=== PATIENT | male | born 1975 | race Two or more races ===

== ENCOUNTER 2020-10-02 14:34 | Outpatient (REF) | payer BC, SELFPAY | END 2020-10-02 14:35 | disposition home or self-care (01) | LOC: HO.LAB 14:34 | PROVIDERS: PCP Internal Medicine; Visit Provider Internal Medicine | DX: Z20.822 Contact with and (suspected) exposure to COVID-19 (principal) | CPT/HCPCS: 36415; C9803; U0003 ==

== ENCOUNTER 2020-12-14 09:05 | Outpatient (REF) | payer BC, SELFPAY ==
[2020-12-14 09:37] LABS: MANUAL DIFF FLAG NO
[2020-12-14 09:56] LABS: Basophils Absolute Auto 0.1 X10*3/uL (0.0-0.2); Basophils Percent Auto 1.6 % (0-2); Eosinophils Absolute Auto 0.2 X10*3/uL (0.0-0.4); Eosinophils Percent Auto 5.2 % (0-4); Hematocrit 42.5 % (42-52); Imm Gran Abs Auto 0.01 X10*3/uL (0.00-0.03); Imm Gran Pct Auto 0.3 % (0.0-0.4); Lymphocytes Absolute Auto 1.4 X10*3/uL (1.2-4.9); Lymphocytes Percent Auto 35.4 % (20-40); Mean Corpuscular HGB Conc 32.9 g/dl (31.0-36.0); Mean Corpuscular Hemoglobin 29.2 pg (27.0-33.0); Mean Corpuscular Volume 88.5 fL (80-98); Monocytes Absolute Auto 0.3 X10*3/uL (0.1-1.2); Monocytes Percent Auto 7.8 % (2-11); Neutrophils Absolute Auto 1.9 X10*3/uL (2.0-8.3); Neutrophils Percent Auto 49.7 % (45-73); Platelet Count 220 X10*3/uL (160-400); Red Cell Distribution Width 12.2 % (11.0-16.0); White Blood Count 3.8 X10*3/uL (4.8-10.8)
[2020-12-14 10:21] LABS: Alanine Aminotransferase 26 U/L (0-40); Albumin Level 4.4 g/dL (3.5-5.0); Alkaline Phosphatase 47 U/L (39-117); Anion Gap 10 (12-20); Aspartate Amino Transferase 23 U/L (5-37); Bilirubin Total 0.7 mg/dL (0.0-1.0); Blood Urea Nitrogen 20 mg/dL (9-16); Calcium 9.4 mg/dL (8.4-10.2); Carbon Dioxide 30 mmol/L (22-29); Chloride 104 mmol/L (96-108); Cholesterol 168 mg/dL; Estimated Glomerular Filt Rate > 60; Glucose Fasting 93 mg/dL (60-99); HDL Cholesterol 65 mg/dL; LDL Cholesterol Calculated 94 mg/dl; Potassium 4.1 mmol/L (3.3-5.1); Sodium 140 mmol/L (135-145); Total Protein 7.3 g/dL (6.5-8.0); Triglycerides 48 mg/dL
[2020-12-14 10:42] LABS: Thyroid Stimulating Hormone 0.81 uIU/mL (0.32-4.0)
== END 2020-12-14 09:06 | disposition home or self-care (01) ==
LOC: HO.LAB 09:05
PROVIDERS: PCP Internal Medicine; Visit Provider Internal Medicine
DX: D64.9 Anemia, unspecified (principal); R63.4 Abnormal weight loss; E78.5 Hyperlipidemia, unspecified; Z83.3 Family history of diabetes mellitus
CPT/HCPCS: 36415; 80053; 80061; 84443; 85025

== ENCOUNTER 2021-09-27 11:11 | Outpatient (REF) | payer BC, SELFPAY ==
[2021-09-27 13:21] LABS: Binax Internal Control QC Valid; Binax Lot number: 9864; Binax Now Covid-19 Ag Positive (Negative)
== END 2021-09-27 11:12 | disposition home or self-care (01) ==
LOC: HO.LAB 11:11
PROVIDERS: Visit Provider Internal Medicine
DX: Z20.822 Contact with and (suspected) exposure to COVID-19 (principal)
CPT/HCPCS: C9803

== ENCOUNTER 2022-03-05 09:29 | Outpatient (REF) | payer BC, SELFPAY ==
[2022-03-05 09:53] LABS: MANUAL DIFF FLAG NO
[2022-03-05 09:57] LABS: Basophils Absolute Auto 0.1 X10*3/uL (0.0-0.2); Basophils Percent Auto 1.3 % (0-2); Eosinophils Absolute Auto 0.3 X10*3/uL (0.0-0.4); Eosinophils Percent Auto 7.3 % (0-4); Hematocrit 41.6 % (42.0-52.0); Hemoglobin 13.8 g/dl (14.0-18.0); Imm Gran Abs Auto 0.01 X10*3/uL (0.00-0.03); Imm Gran Pct Auto 0.3 % (0.0-0.4); Lymphocytes Absolute Auto 1.1 X10*3/uL (1.2-4.9); Lymphocytes Percent Auto 28.9 % (20-40); Mean Corpuscular HGB Conc 33.2 g/dl (31.0-36.0); Mean Corpuscular Hemoglobin 29.2 pg (27.0-33.0); Mean Corpuscular Volume 87.9 fL (80.0-98.0); Mean Platelet Volume 10.5 fL (9.4-12.4); Monocytes Absolute Auto 0.3 X10*3/uL (0.1-1.2); Monocytes Percent Auto 8.1 % (2-11); Neutrophils Absolute Auto 2.1 x10*3/uL (2.0-8.3); Neutrophils Percent Auto 54.1 % (45-73); Platelet Count 206 X10*3/uL (160-400); Red Blood Count 4.73 X10*6/uL (4.60-5.80); Red Cell Distribution Width 12.1 % (11.0-16.0)
[2022-03-05 10:25] LABS: Alanine Aminotransferase 16 U/L (0-40); Albumin Level 4.4 g/dL (3.5-5.0); Alkaline Phosphatase 51 U/L (39-117); Anion Gap 9 (12-20); Aspartate Amino Transferase 18 U/L (5-37); Bilirubin Total 0.7 mg/dL (0.0-1.0); Blood Urea Nitrogen 19 mg/dL (9-16); Calcium 9.4 mg/dL (8.4-10.2); Carbon Dioxide 30 mmol/L (22-29); Chloride 105 mmol/L (96-108); Cholesterol 161 mg/dL; Estimated Glomerular Filt Rate > 60; Glucose Fasting 100 mg/dL (60-99); HDL Cholesterol 65 mg/dL; LDL Cholesterol Calculated 87 mg/dl; Potassium 4.6 mmol/L (3.3-5.1); Sodium 139 mmol/L (135-145); Total Protein 6.3 g/dL (6.5-8.0); Triglycerides 47 mg/dL
[2022-03-05 10:46] LABS: Prostate Specific Antigen Scr 0.59 ng/mL (<0.05-4.0)
== END 2022-03-05 09:30 | disposition home or self-care (01) ==
LOC: HO.LAB 09:29
PROVIDERS: PCP Internal Medicine; Visit Provider Nurse Practitioner Family
DX: Z00.00 Encounter for general adult medical examination without abnormal findings (principal); I10 Essential (primary) hypertension; E78.00 Pure hypercholesterolemia, unspecified; Z83.3 Family history of diabetes mellitus; Z12.5 Encounter for screening for malignant neoplasm of prostate
CPT/HCPCS: 36415; 80053; 80061; 84153; 85025

== ENCOUNTER → 2024-05-19 14:32 | Outpatient (RCR) | payer BC, SELFPAY ==
--- NOTE | 2021-03-08 14:56 | P.CNHO_ITS ---
Subjective - Subjective Chief complaint: Weight loss Patient: new to practice Consult date: 03/08/21 Primary Care Provider: Nita Delgado MD Medical Summary: Diagnosis: Leukopenia/weight loss HPI - Consult Narrative Reason for consult: leukopenia Narrative: Juaquin Joya is a 46 year old male referred for evaluation of weight loss and leukopenia. Patient states that in the last few years he has lost over 20 lb. He attributes this to control of his diet and not eating any sugars are carbohydrates. Overall he has no symptoms such as fatigue, fever, chills or loss of appetite. He denies any recent infections or use of new medications. His energy level is good. He has no history of recurrent infections. He denies any abdominal discomfort, heartburn or reflux symptoms, difficulty swallowing or change in bowel habits. He has no symptoms of excessive urination or excessive hunger. Review of Systems - Constitutional Reports as per HPI, Reports no additional constitutional complaints - Cardiovascular Reports no additional cardiovascular complaints - Respiratory Reports no additional respiratory complaints - Gastrointestinal Reports no additional gastrointestinal complaints Oncology Screenings - ECOG Performance Status ECOG Performance Status: 0 [facility] Medical History: Medical History (Last Reviewed 03/08/21 @ 15:02 by Sanjuana Dye RN) Family history of diabetes mellitus Leukopenia Right lower quadrant abdominal pain Shoulder pain Weight loss Family History: Family History (Last Reviewed 01/31/21 @ 12:08 by Nita Delgado MD) Father Heart problem Mother Diabetes Maternal Grandmother No problems noted. Maternal Grandfather No problems noted. Paternal Grandmother No problems noted. Paternal Grandfather No problems noted. Surgical History: Surgical History (Last Reviewed 03/08/21 @ 15:02 by Sanjuana Dye RN) No pertinent past surgical history Social History: Social History (Last Updated 03/08/21 @ 15:03 by Sanjuana Dye RN) Alcohol History: Alcohol intake: never Tobacco History: Patient Tobacco Use Status: Never used Tobacco Patient Tobacco Use Status: Never used Tobacco Substance use type: does not use Home Medications and Allergies Allergies Allergy/AdvReac Type Severity Reaction Status Date / Time No Known Allergies Allergy Verified 01/31/21 12:07 Physical Exam Narrative: Appears well, thin built and rather thin for his height. - Constitutional Present: no acute distress, thin - Routine HEENT Exam Head: Present: normal inspection Eye: Present: EOMI, normal appearance - Routine Neck Exam Present: supple. Absent: lymphadenopathy, thyromegaly, swelling - Routine Chest/Breast/Axilla Exam Axillae: Absent: lymphadenopathy - Routine Respiratory Exam Present: CTAB. Absent: rhonchi - Routine Cardiovascular Exam Cardiovascular: Present: RRR, S2 - Routine Abdominal Exam Present: normal bowel sounds, soft. 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 His leukopenia was discovered incidentally, his WBC count has remained stable since 2014. He has no constitutional symptoms or symptoms of recurrent infections. his weight loss seems related to his eating habits and, he has no gastrointestinal symptoms or constitutional symptoms. He feels quite well and has good energy levels. He has no desire to increase his weight but if he does, he should keep a calorie count and try to increase his oral intake. He is not on any medications that can cause weight loss and he is not a diabetic. I do not think his leukopenia and weight loss are related. He has benign stable leukopenia without any symptoms to suggest underlying hematological disorder. Basic hematological blood work however has been submitted to rule out any vitamin deficiencies. Results will be discussed on follow-up visit. I thank you for this consultation.
[2021-03-08 14:59] VITALS: BP 125/60; PULSE 70; RESP 18; TEMP 36.7; O2SAT 99; BMI 19.3
[2021-03-08 15:59] LABS: MANUAL DIFF FLAG NO
[2021-03-08 16:03] LABS: Basophils Absolute Auto 0.1 X10*3/uL (0.0-0.2); Basophils Percent Auto 1.2 % (0-2); Eosinophils Absolute Auto 0.2 X10*3/uL (0.0-0.4); Eosinophils Percent Auto 5.4 % (0-4); Hemoglobin 13.7 g/dl (14.0-18.0); Imm Gran Abs Auto 0.01 X10*3/uL (0.00-0.03); Imm Gran Pct Auto 0.2 % (0.0-0.4); Immature Retic Fraction 3.6 % (2.3-13.4); Lymphocytes Absolute Auto 1.3 X10*3/uL (1.2-4.9); Lymphocytes Percent Auto 32.2 % (20-40); Mean Corpuscular HGB Conc 32.6 g/dl (31.0-36.0); Mean Corpuscular Hemoglobin 28.8 pg (27.0-33.0); Mean Corpuscular Volume 88.4 fL (80-98); Mean Platelet Volume 11.1 fL (9.4-12.4); Monocytes Absolute Auto 0.3 X10*3/uL (0.1-1.2); Monocytes Percent Auto 7.1 % (2-11); Neutrophils Absolute Auto 2.2 X10*3/uL (2.0-8.3); Neutrophils Percent Auto 53.9 % (45-73); Platelet Count 222 X10*3/uL (160-400); Red Blood Count 4.75 X10*6/uL (4.60-5.80); Retic HGB Equivalent 32.2 pg (30.0-35.0); Reticulocytes Absolute 0.049 X10*6/uL (0.026-0.095); White Blood Count 4.1 X10*3/uL (4.8-10.8)
[2021-03-08 16:29] LABS: Lactate Dehydrogenase 174 U/L (118-273)
[2021-03-08 17:05] LABS: Folate 14.7 ng/mL (> or = 4.0); Vitamin B12 919 pg/mL (200-900)
[2021-03-10 15:52] LABS: Anti Nuclear Antibody Screen NEGATIVE (NEGATIVE)
[2021-03-11 11:51] LABS: Prot Elec - Albumin 4.4 g/dL (3.8-4.8); Prot Elec - Alpha1 0.2 g/dL (0.2-0.3); Prot Elec - Alpha2 0.7 g/dL (0.5-0.9); Prot Elec - Beta 1 0.5 g/dL (0.4-0.6); Prot Elec - Beta 2 0.5 g/dL (0.2-0.5); Prot Elec - Gamma 1.1 g/dL (0.8-1.7); Prot Elec - Total Protein 7.4 g/dL (6.1-8.1)
[2021-03-12 19:28] LABS: IgA 370 mg/dL (47-310); IgG 1217 mg/dL (600-1640); IgM 97 mg/dL (50-300)
== END | disposition home or self-care (01) ==
LOC: HO.ONC 03-08 14:37
PROVIDERS: PCP Internal Medicine; Referring Provider Internal Medicine; Visit Provider Internal Medicine
DX: D72.819 Decreased white blood cell count, unspecified (principal); R63.4 Abnormal weight loss
CPT/HCPCS: 36415; 82607; 82746; 82784; 83615; 84155; 84165; 85025; 85045; 86038; 86039; 86334

== ENCOUNTER 2024-12-02 15:33 | Outpatient (AMB) | payer OTHER, SELFPAY ==
[2024-12-02 15:51] VITALS: BP 100/62; PULSE 83; TEMP 37.3; O2SAT 97; BMI 18.6
--- NOTE | 2024-12-02 15:51 | A.OFFPC_ITS ---
Vital Signs 12/02/24 15:51 Height 5 ft 11 in Weight 133 lb 9.6 oz BMI 18.6 BP 100/62 Blood Pressure Location Lt brachial Position Sitting Pulse 83 Pulse Source Pulse Oximeter Temp 99.1 F Temp Source Oral Pulse Oximetry (%) 97 Oxygen Delivery Method Room Air Intake Visit Reasons: back pain Learning Designer Required: No Accompanied by: Self / Same As Patient Allergies No Known Allergies Allergy (Verified 12/02/24 15:58) Medication List - Last Reconciled 12/02/24 by ASHLEY Roberts No Known Home Meds Tobacco use date assessed: 12/02/24 Dental Screening Dental Screen Date: 12/02/24 Did you have a dental visit in the last 12 months?: No Did you have a dental problem in the last 6 months where you did not have access to dental care?: No HPI back pain HPI Details The patient is a 49-year-old male presenting with complaints of back pain Patient reports that his back has been hurting for a few months now Reports that the pain comes and goes but lately it has been more bothersome Reports that the pain is in his lower back without radiation in lower extremities Reports that he had tried icy hot and Motrin with some relief Patient denies any recent injuries or trauma [facility] Medical History Leukopenia Weight loss Right lower quadrant abdominal pain Family history of diabetes mellitus Shoulder pain Surgical History No pertinent past surgical history Family History Father Heart problem Mother Diabetes Maternal Grandmother No problems noted. Maternal Grandfather No problems noted. Paternal Grandmother No problems noted. Paternal Grandfather No problems noted. Social History Housing: Apartment Alcohol intake: never Patient Tobacco Use Status: Never used Tobacco e-Cigarette/Vaping Use: Never Used Second Hand Smoke Exposure: No service: No Current occupational status: employed Current occupational exposures/hazards: No Cognitive needs: No Hearing needs: No Vision needs: Yes (Glasses) Questionnaire PHQ-9 Over the last 2 weeks, how often have you been bothered by any of the following problems? 1. Little interest or pleasure in doing things: not at all 2. Feeling down, depressed, or hopeless: not at all 3. Trouble falling or staying asleep, or sleeping too much: not at all 4. Feeling tired or having little energy: not at all 5. Poor appetite or overeating: not at all 6. Feeling bad about yourself - or that you are a failure or have let yourself or your family down: not at all 7. Trouble concentrating on things, such as reading the newspaper or watching television: not at all 8. Moving or speaking so slowly that other people could have noticed. Or the opposite - being so fidgety or restless that you have been moving around a lot more than usual: not at all 9. Thoughts that you would be better off or of hurting yourself in some way: not at all Total score: 0 Depression Screening Interpretation: Negative Depression Screening Done: Yes 19856 - PHQ-9 Billing: Yes Source: Developed by Drs. Simon Mejia, Simran Feldman, Rickey Myles and colleagues, with an educational odilia from [employer] Thrive Questionnaire Date Thrive assessed: 12/02/24 I am a: Patient What is your living situation today?: I have a steady place to live Within the past 12 months, did the food you bought not last and you didn't have the money to get more?: Never true Within the past 12 months, did you worry whether your food would run out before you got money to buy more?: Never true Do you have trouble paying for medicines?: No Do you have trouble getting transportation to medical appointments?: No Do you have trouble paying your heating and electricity bill?: No Do you have trouble taking care of your child, family member or friend?: No Do you have trouble with day-to-day activities such as bathing, preparing meals, shopping, managing finances, etc.?: No Are you currently unemployed and looking for a job?: No Are you interested in more education?: No Please select the resources that you would like help with: None Currently or been in a relationship where the following occur: No concerns reported THRIVE Score: 0 AUDIT C Alcohol Use Questionnaire (AUDIT-C) 1. How often do you have a drink containing alcohol?: Never 3. How often do you have six or more drinks on one occasion?: Never Total Score: 0 Score Reviewed/Action Taken: No CADEN-7 AMB Questionnaire CADEN-7 Date CADEN - 7 assessed: 12/02/24 Feeling nervous, anxious, or on edge: 0 = Not at all Not being able to stop or control worryin = Not at all Worrying too much about different things: 0 = Not at all Trouble relaxin = Not at all Being so restless that it is hard to sit still: 0 = Not at all Becoming easily annoyed or irritable: 0 = Not at all Feeling afraid as if something awful might happen: 0 = Not at all Total CADEN-7 score (0-4 normal; 5-9 mild; 10-14 moderate; 15-21 severe): 0 Source: Developed by Drs. Simon Mejia, Simran Feldman, Rickey Myles and colleagues, with an educational odilia from [employer] CADEN-7 Assessment Billing CADEN-7 Assessment Tool: CADEN-7 Assessment 85349 Review of Systems Const Denies headache(s) Eyes Denies loss of vision ENT Denies vertigo, Denies dizziness, Denies headache(s) and Denies sore throat Card Denies chest pain, Denies leg edema and Denies lightheadedness Resp Denies cough, Denies hemoptysis and Denies wheezing GI Denies abdominal pain, Denies melena, Denies constipation, Denies diarrhea and Denies vomiting Denies dysuria, Denies urinary frequency and Denies urinary urgency Musc Reports back pain, Denies arthralgias, Denies joint swelling, Denies numbness and Denies tingling Neuro Denies Abnormal speech present, Denies behavioral changes, Denies vertigo, Denies dizziness, Denies headache(s), Denies loss of vision, Denies memory loss, Denies numbness and Denies tingling Psych Denies anxiety, Denies behavioral changes, Denies depression, Denies memory loss and Denies panic attacks Michele/Lymph Denies easy bleeding and Denies easy bruising Aller/Immun Denies wheezing Physical exam (Primary Care) Vital Signs: Last Vital Signs Temp 99.1 F 12/02/24 15:51 Pulse 83 12/02/24 15:51 BP 100/62 12/02/24 15:51 Pulse Ox 97 12/02/24 15:51 Oxygen Delivery Method Room Air 12/02/24 15:51 BMI result Body Mass Index 18.6 Tobacco/Smoking Status: Tobacco use Status Tobacco use date assessed 12/02/24 12/02/24 15:57 Patient Tobacco Use Status Never used Tobacco 12/02/24 15:57 e-Cigarette/Vaping Use Never Used 12/02/24 15:57 PHQ-9: PHQ-9 Score PHQ-9: Total score 0 12/02/24 16:04 Depression Screening Interpretation: Negative Thrive Assessment: Date of Thrive Assessment Date Thrive assessed 12/02/24 12/02/24 15:57 Currently or been in a relationship where the following occur: No concerns reported Const General: healthy appearing, no acute distress, alert and awake Nutritional Appearance: well nourished Orientation/consciousness: oriented to person, oriented to place and oriented to time HENMT Ears: TM's normal bilaterally General nose exam: Normal nasal mucous membranes and turbinates present Eyes Conjunctivae: conjunctivae normal Sclerae: sclerae normal Pupils: Equal, round and reactive pupils present Neck Neck: Yes no lymphadenopathy and Yes no JVD Thyroid: Thyroid normal Carotids: no bruits Resp Effort & Inspection: normal respiratory effort and not tachypneic Auscultation: no crackles, no rales, no rhonchi and no wheezes Cardio Rate: regular rate Rhythm: regular rhythm Heart sounds: no murmurs and normal S1 and S2 GI Palpation (GI): Soft to palpation, nontender, no hepatomegaly and no splenomegaly Auscultation: normal bowel sounds General: Yes no CVA tenderness Back/Spine/Pelvis Back: no CVA tenderness Thoracic/Lumbar Spine: straight leg raise negative bilaterally, No thoracic spinal tenderness and No lumbar spinal tenderness Skin General skin exam: no rashes or lesions noted and dry skin Neuro General: oriented to person, oriented to place and oriented to time Cranial nerves: Yes Equal, round and reactive pupils present Speech: No Abnormal speech present Gait exam (Neuro): Normal gait present Motor exam (neuro): no tremor noted Extrem Right upper extremity: full ROM Left upper extremity: full ROM Right lower extremity: full ROM; no edema Left lower extremity: full ROM; no edema Psych Mental Status: mental status grossly normal Speech and movement: Normal speech and movement present Affect: normal affect Attitude: cooperative Thought process: Normal thought process present Coding Level of Care Code Est Pt Level 3 (43398) Diagnoses Bilateral low back pain without sciatica, unspecified chronicity M54.50 Chronicity: unspecified Back pain laterality: bilateral Sciatica presence: without sciatica Additional Codes CADEN-7 Assessment Billing - CADEN-7 Assessment Tool: CADEN-7 Assessment 36171 ([id number]) PHQ-9 - 65806 - PHQ-9 Billing: Yes ([id number]) Time Spent (min) 33 Assessment & Plan Assessment & Plan (1) Low back pain: Code(s): M54.50 - Low back pain, unspecified Category: Medical Qualifiers: Chronicity: unspecified Back pain laterality: bilateral Sciatica presence: without sciatica Qualified Code(s): M54.50 - Low back pain, unspecified Plan: Meloxicam 15 mg daily and cyclobenzaprine 10 mg at bedtime p.r.n. ordered. Lumbar x-ray ordered to further evaluate Orders: Orders XR lumbar spine 2-3V 12/02/24 M54.50 - Low back pain, unspecified Medications: New meloxicam 15 mg PO DAILY 30 tabs 2RF 30 days M54.50 - Low back pain, unspecified cyclobenzaprine 10 mg PO BEDTIME PRN 30 tabs 1RF muscle spasm M54.50 - Low back pain, unspecified
== END 2024-12-02 16:13 | disposition home or self-care (01) ==
LOC: HO.HMCH 15:34
PROVIDERS: PCP Internal Medicine
DX: M54.50 Low back pain, unspecified (principal)

== ENCOUNTER 2024-12-02 15:33 | Outpatient (REF) | payer OTHER, SELFPAY ==
--- NOTE | ~2024-12-02 | XR_ITS ---
CLINICAL HISTORY: M54.50 - Low back pain, unspecified 3 views lumbar spine Comparison: None Findings: Normal vertebral body alignment. No acute fractures or dislocation. Vertebral body heights are well-maintained. No significant degenerative change. IMPRESSION: No acute findings. This document has been electronically signed by: Mayra Montano DO on 12/05/2024 14:17:41
== END 2024-12-02 15:34 | disposition home or self-care (01) ==
LOC: HO.XRAY 15:33
PROVIDERS: PCP Internal Medicine
DX: M54.50 Low back pain, unspecified (principal)
CPT/HCPCS: 72100; 96127

== ENCOUNTER → 2024-12-02 16:26 | Outpatient (BNV) | payer OTHER, SELFPAY | PROVIDERS: PCP Internal Medicine; Visit Provider Radiology Diagnostic Radiology | DX: M54.50 Low back pain, unspecified (principal) | CPT/HCPCS: 72100 ==